=== PATIENT | male | born 1970 | race African-American/Black ===

== ENCOUNTER 2017-04-04 21:21 | Emergency (ER) | payer BC ==
[~2017-04-04] VITALS: Ht 180.3 cm; Wt 113.4 kg
== END 2017-04-04 23:30 | disposition home or self-care (01) ==
LOC: CED 21:21
DX: E86.0 Dehydration (principal); R11.0 Nausea; K21.9 Gastro-esophageal reflux disease without esophagitis; I10 Essential (primary) hypertension; Z90.89 Acquired absence of other organs; Z88.8 Allergy status to other drugs, medicaments and biological substances
CPT/HCPCS: 99284